=== PATIENT | male | born 1955 | race Caucasian/White ===

== ENCOUNTER → 2017-08-27 | Outpatient (CLI) | payer OTHER ==
--- NOTE | 2017-08-27 17:49 | REP ---
Right shoulder series: Three views. History: Pain in the right shoulder. Decreased range of motion. Findings: Three views of the right shoulder demonstrate an orthopedic anchor in the humeral head. Glenohumeral and acromioclavicular joints are normally aligned. There is minimal hypertrophy of the AC joint. There is a small right first thoracic rib which it is seen articulating with the midportion of the right second rib. This is unchanged from comparison chest x-ray. Periarticular soft tissues are unremarkable. Impression: Orthopedic anchor in the humeral head. Mild AC joint osteoarthritic hypertrophy. 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 Signed by Ceasar Mitchell MD 08/27/2017 05:53 P
== END ==
LOC: M ADAMS 16:10
PROVIDERS: ATTEND Family Medicine
DX: M19.011 Primary osteoarthritis, right shoulder (principal); M25.511 Pain in right shoulder

== ENCOUNTER → 2017-08-27 | Outpatient (REF) | payer OTHER ==
[2017-08-27 20:48] LABS: MEAN CORPUSCULAR HEMOGLOBIN 31.6 pg (27.0-33.0); MEAN CORPUSCULAR HGB CONC 33.6 g/dl (32.0-36.5); MEAN CORPUSCULAR VOLUME 94.3 fl (80.0-96.0); PLATELET COUNT, AUTOMATED 261 10^3/uL (150-450); RED CELL DISTRIBUTION WIDTH 12.8 % (11.5-14.5); WHITE BLOOD COUNT 7.9 10^3/uL (4.0-10.0)
[2017-08-27 20:54] LABS: VITAMIN B12 LEVEL 612 PG/ML (247-911)
[2017-08-27 20:55] LABS: FOLATE 15.4 NG/ML (>5.4)
[2017-08-27 21:06] LABS: ALBUMIN/GLOBULIN RATIO 1.11 (1.00-1.93); ALKALINE PHOSPHATASE 43 U/L (45-117); ALT/SGPT 31 U/L (12-78); ANION GAP 5 MEQ/L (8-16); AST/SGOT 22 U/L (15-37); BILIRUBIN,TOTAL 0.7 MG/DL (0.2-1.0); BLOOD UREA NITROGEN 18 MG/DL (7-18); CALCIUM LEVEL 8.8 MG/DL (8.8-10.2); CARBON DIOXIDE LEVEL 30 MEQ/L (21-32); CHLORIDE LEVEL 104 MEQ/L (98-107); CHOLESTEROL LEVEL 217 MG/DL (<200); CREATININE FOR GFR 0.78 MG/DL (0.70-1.30); GLOMERULAR FILTRATION RATE > 60.0 (>49); GLUCOSE, FASTING 75 MG/DL (80-110); POTASSIUM SERUM 4.2 MEQ/L (3.5-5.1); SODIUM LEVEL 139 MEQ/L (136-145); TOTAL PROTEIN 7.6 GM/DL (6.4-8.2); TRIGLYCERIDES LEVEL 89 MG/DL (<150)
== END ==
LOC: M SFHCADAM 15:56
PROVIDERS: ATTEND Family Medicine
DX: R53.83 Other fatigue (principal); G47.33 Obstructive sleep apnea (adult) (pediatric); E78.2 Mixed hyperlipidemia; Z12.5 Encounter for screening for malignant neoplasm of prostate
CPT/HCPCS: 80053; 80061; 82306; 82607; 82746; 84402; 84403; 84439; 84443; 85027; G0103

== ENCOUNTER → 2019-02-26 | Outpatient (CLI) | payer OTHER ==
--- NOTE | 2019-02-26 11:34 | REP ---
Chest two views HISTORY: Cough Comparison: 10/31/2015 The lungs are clear. The heart is normal in size. The pulmonary vasculature is normal in appearance. The bony structure is intact. IMPRESSION: No acute disease. Electronically Signed by David Phan MD 02/26/2019 11:26 A
== END ==
LOC: M WUC 11:12
PROVIDERS: ATTEND Physician Assistant
DX: R05 Cough (principal)

== ENCOUNTER → 2019-09-09 | Outpatient (REF) | payer OTHER | LOC: M LABDRAW1 14:19 | PROVIDERS: ATTEND Orthopaedic Surgery | DX: M21.42 Flat foot [pes planus] (acquired), left foot (principal) ==

== ENCOUNTER → 2021-06-16 | Outpatient (CLI) | payer OTHER ==
--- NOTE | 2021-06-16 15:58 | REP ---
INDICATION: WOUND, SWELLING LT LEG, R/O DVT AND REFLUX. COMPARISON: None. TECHNIQUE: Multiple ultrasonographic images of the deep venous structures of the left lower extremity were obtained from the inguinal ligament to the ankle. Venous compression techniques, color doppler imaging, and augmentation techniques were also obtained where appropriate. As per the ACR guidelines the anterior tibial vein can not be effectively evaluated. Only compression techniques in the calf on the peroneal and posterior tibial veins was attempted/performed. FINDINGS: There is no abnormal echogenic material seen within any of the visualized deep venous structures that would suggest acute thrombosis. Coaptation is unremarkable throughout. Doppler interrogation shows an expected response to respiratory variability and augmentation in the thigh. Compression techniques in the calf showed no abnormality. The color flow images show what appears to be a normal vascular pattern throughout the thigh. Echogenic material seen throughout the greater saphenous vein consistent with thrombosis of the greater saphenous vein. This is not part of the deep venous system. Deep vein reflux study: Reflux is seen in the common femoral vein. An anterior accessory greater saphenous vein is present. No reflux was identified. There is greater saphenous vein occlusion with abnormal echogenic material seen throughout all portions. Reflux is seen within the proximal, mid, and distal portions of the superficial femoral vein. Reflux is seen in the popliteal vein. Reflux is seen in the lesser saphenous vein of 9.7 seconds duration in the AP dimension of which measures 3.9 mm. IMPRESSION: There is no ultrasonographic evidence of deep venous thrombosis involving any of the visualized deep venous structures of the left lower extremity as described above. There is greater saphenous vein occlusion as described above. Abnormal deep vein reflux study as described above. <Electronically signed by Jermaine Michael > 06/16/21 0114
== END ==
LOC: M RAD 13:46
PROVIDERS: ATTEND Surgery
DX: T81.30XA Disruption of wound, unspecified, initial encounter (principal)

== ENCOUNTER → 2021-07-11 | Outpatient (POV) | payer OTHER ==
[~2021-07-11] VITALS: Ht 182.9 cm; Wt 85.5 kg
[2021-07-11 07:45] VITALS: BP 122/73
--- NOTE | 2021-07-14 09:52 | IRCOV ---
[facility] IR Consult Office Visit IR Consult Office Visit DATE: Jul 11, 2021 REASON FOR CONSULTATION/CHIEF COMPLAINT: Nonhealing postsurgical wounds. 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 The surgical sites have not healed since the surgery. 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 Patient also describes extensive foot surgery in the left lower extremity 2-1/2 hours ago, for heel stabilization. This resulted in significant swelling of the left lower extremity. He was diagnosed with a postoperative left lower extremity DVT and treated with Xarelto. Now patient complains of left lower extremity swelling. He denies intermittent claudication or rest pain. He is on his feet all day. He does describe a throbbing and tingling sensation in the leg. He does wear compression stockings. He is a nonsmoker. He has had prior left lower extremity DVT for which he was treated with Xarelto. He is no longer on Xarelto. He does describe prior left GSV ablation many many years ago. He cannot recall when, where or by whom. Patient denies chest pain, shortness of breath, orthopnea or paroxysmal nocturnal dyspnea. Patient denies change in appetite or weight. ALLERGIES: Please see below. HOME MEDICATIONS: Please see below. PAST MEDICAL HISTORY: Dyslipidemia Arthritis Vitamin D deficiency TAYLOR Left lower leg DVT PAST SURGICAL HISTORY: Bilateral shoulder arthroscopy Right inguinal hernia repair Knee surgery Right medial knee resurfacing Left inguinal hernia repair Left foot surgery 2019 FAMILY HISTORY: Noncontributory. SOCIAL HISTORY: Nonsmoker. Denies alcohol or drugs. REVIEW OF SYSTEMS: Otherwise negative. PHYSICAL EXAMINATION: VITAL SIGNS: Please see below. GENERAL APPEARANCE: Appears well. Comfortable at rest. HEENT: No scleral icterus. RESPIRATORY: Normal breathing at rest. CARDIOVASCULAR: Normal rate. ABDOMEN: Nontender. EXTREMITIES: Left lower extremity: [place] in color. Warm to touch. Edema to the knee. Ulcer above the medial malleolus. Sensation intact. Motor 5 out of 5. Popl iteal pulses 1+ PT nonpalpable. Right lower extremity: Warm, pink in color. Sensation intact. Motor intact. No ulcers. No gangrene. DP/PT 1+ popliteal 1+. NEUROLOGICAL: Alert and oriented. PSYCHIATRIC: Appropriate to circumstance. LABORATORY DATA: None recent. Imaging: I personally reviewed the left lower extremity venous reflux study performed 06/16/2021. The left greater saphenous vein is dilated with greater than 0.5 seconds of reflux. ASSESSMENT/PLAN: 66-year-old male with chronic swelling of the left lower extremity and nonhealing postsurgical wounds associated with greater saphenous vein dilation, venous hypertension and reflux. Deep venous system is patent. I agree patient may benefit from EVLT. We discussed the risks and benefits of the procedure and patient is willing to proceed. We'll schedule the patient for left lower extremity EVLT. I spent 30 minutes reviewing patient's records, imaging and in consultation with the patient. Thank you for this referral. Cc Dr. Rosales Allergies Coded Allergies: MS - No Known Drug Allergy (Verified Allergy, Unknown, 02/03/13) VS, I&O, 24H, Fishbone Vital Signs/I&O Vital Signs Date Time Temp Pulse Resp B/P (MAP) Pulse Ox O2 Delivery O2 Flow Rate FiO2 07/11/21 07:45 97.7 76 16 122/73 (89) 99 Room Air FANNY CHAND MD Jul 14, 2021 09:52
== END ==
LOC: M IRPOV 07:39
PROVIDERS: ATTEND Radiology Diagnostic Radiology
DX: T81.89XA Other complications of procedures, not elsewhere classified, initial encounter (principal); I87.302 Chronic venous hypertension (idiopathic) without complications of left lower extremity; E55.9 Vitamin D deficiency, unspecified; E78.5 Hyperlipidemia, unspecified; G47.33 Obstructive sleep apnea (adult) (pediatric); M12.9 Arthropathy, unspecified; Z86.718 Personal history of other venous thrombosis and embolism

== ENCOUNTER → 2021-08-03 | Outpatient (CLI) | payer OTHER ==
[~2021-08-03] MED LIST: D31000TA2 PO; LIDOCAINE 1% MDV 20ML VIAL As Ordered ONE; LIDOCAINE 2% MDV 20ML VIAL As Ordered ONE; MIDAZOLAM INJ 2MG/2ML VIAL (J2250 PER 1MG) As Ordered ONE; NS 1,000 ML IV SCH; PROMETHAZINE INJ 25 MG/ML VIAL (J2550) As Ordered ONE; VITMTA PO; diphenhydrAMINE 50MG/ML VIAL (J1200) As Ordered ONE; fentaNYL 100 MCG/2 ML INJECTION (J3010) As Ordered ONE
--- NOTE | 2021-08-03 08:07 | IRHP ---
[facility] IR Pre-Procedure H & P General Date of Service: Aug 03, 2021 Procedure: Same Day Surgery Interval History and Physical I have seen the patient and reviewed last H & P performed within 30 days. There is no significant interval change. History of Present Illness Chief Complaint The patient is a 66-year-old male admitted with a reason for visit of Varicose Veins, Non Healing Ulcer. PRE-PROCEDURE DIAGNOSIS: Venous hypertension. Varicose veins. Venous ulcer HEART: Normal rate. LUNGS: Normal breathing at rest. ASA Classification ASA Classification: II-Mild systemic disease Mallampati Score: II NPO: Yes Problems with prior sedation: No Obstructive Sleep Apnea: No Plan moderate sedation Allergies Coded Allergies: No Known Drug Allergies (Verified Allergy, Unknown, 08/03/21) Home Medications Scheduled Cholecalciferol (Vitamin D3) (Vitamin D3), 5,000 UNITS PO QWEEK, (Reported) Multivitamins (Thera M Plus Tablet), 1 TAB PO QAM, (Reported) VS, I&O, 24H, Fishbone Vital Signs/I&O Vital Signs Date Time Temp Pulse Resp B/P (MAP) Pulse Ox O2 Delivery O2 Flow Rate FiO2 08/03/21 07:29 97.9 70 18 100 Room Air FANNY CHAND MD Aug 03, 2021 08:07
[2021-08-03 12:00] VITALS: BP 118/62
--- NOTE | 2021-08-03 15:24 | IRPON ---
IR Postoperative Note Date Of Procedure: Aug 03, 2021 Time Of Procedure: 15:18 IR Postoperative Note IR Endovenous laser treatment for leg varicose vein. IR Ultrasound of the left leg. IR Tumescent anesthesia under ultrasound guidance. IR Moderate sedation. Clinical information: Left lower extremity nonhealing venous ulcer. Greater saphenous vein reflux greater than 0.5 seconds. Physician: Dr. Novoa. Procedure: The patient was advised of the benefits, risks and alternatives of the procedure and informed consent was obtained. The time-out was performed with verification of the patient's name, MRN, site of procedure and type of procedure to be performed. The patient was positioned in the prone position on the table. The site was prepped and draped in the usual sterile fashion. Moderate sedation was performed by the physician including the presence of an independent trained RN who assisted in monitoring the patient's level of consciousness and physiologic status. Following the administration of fentanyl and Versed , the physician spent 90 minutes of continuous face to face time with the patient. Ultrasound of the left lower extremity demonstrates dilated left greater saphenous vein, above and below the knee, with greater than 0.5 seconds reflux. The access site was identified with ultrasound and anesthetized with lidocaine. The left greater saphenous vein was accessed under ultrasound guidance at the calf, using a micro introducer needle. An 018 cope wire was advanced into the vein. Incision at the access site was made using a scalpel. The needle was removed and an access catheter was advanced over the wire under ultrasound guidance to > 2.5 centimeters from the saphenofemoral junction. The wire was removed and the laser fiber was advanced through the catheter under ultrasound guidance and positioned with the tip located greater than 2.5 cm from the saphenous femoral junction. Tumescent anesthesia was then injected under ultrasound guidance along the entire length of the vein to be treated. Repeat ultrasound of the saphenofemoral junction was used to confirm positioning of the tip of the laser back greater than 2.5 cm from junction. The patient was positioned in Trendelenburg. The laser was then activated and under ultrasound guidance used to laser the Left greater saphenous vein back to the access point. Simultaneous manual compression was applied to the treated vein. Treatment: Wattage: 7. Time: 96 seconds. Pullback rate 1 cm every 7 seconds. Total Energy deposited 674 joules. Treatment 50 joules per centimeter of vein. The fiber, catheter and sheath were removed, pressure held and hemostasis achieved. A sterile dressing was applied to the site. Compression dressing was then applied to the leg, from ankle to groin. The patient tolerated the procedure well and was returned to the PRU in stable condition. EBL: < 5 ml. Complications: None. Impression: 1. Ultrasound demonstrates dilated left greater saphenous vein with greater than 0.5 seconds reflux. 2. Successful left greater saphenous vein ablation with laser. 3. Compression dressing applied from ankle to groin. Patient to return in 1 week for follow up ultrasound at which time the compression dressing will be switched to stockings. Thank you this referral. CC FANNY Love MD Aug 03, 2021 15:24
== END ==
LOC: M IRPRO 07:22
PROVIDERS: ATTEND Radiology Diagnostic Radiology
DX: I83.029 Varicose veins of left lower extremity with ulcer of unspecified site (principal); I87.312 Chronic venous hypertension (idiopathic) with ulcer of left lower extremity; L97.829 Non-pressure chronic ulcer of other part of left lower leg with unspecified severity
CPT/HCPCS: 36465; 36478; 76940; 99152; 99153; C1769; J1200; J2250; J3010

== ENCOUNTER → 2021-08-08 | Outpatient (POV) | payer OTHER ==
[~2021-08-08] VITALS: Ht 182.9 cm; Wt 84.0 kg
[~2021-08-08] MED LIST changes: -LIDOCAINE 1% MDV 20ML VIAL As Ordered ONE; -LIDOCAINE 2% MDV 20ML VIAL As Ordered ONE; -MIDAZOLAM INJ 2MG/2ML VIAL (J2250 PER 1MG) As Ordered ONE; -NS 1,000 ML IV SCH; -PROMETHAZINE INJ 25 MG/ML VIAL (J2550) As Ordered ONE; -diphenhydrAMINE 50MG/ML VIAL (J1200) As Ordered ONE; -fentaNYL 100 MCG/2 ML INJECTION (J3010) As Ordered ONE
[2021-08-08 08:40] VITALS: BP 114/74
--- NOTE | 2021-08-10 13:01 | IRPN ---
[facility] IR Progress Note IR Progress Note DATE: Aug 08, 2021 FOLLOW-UP: Patient is status post left lower extremity GSV EVLT ablation. Patient reports the left leg is sore and swollen. Patient reports taking down his Monty wrap as it rolled down and was pinching into the back of his thigh/knee. He replaced these with compression stockings. ON EXAMINATION: Left foot and lower extremity appears swollen. Nontender. Calf soft nontender. Ablation tract is nontender. There is skin breakdown behind the knee, in a linear/transverse orientation, compatible with compression and trauma from Monty wrap. Leg is otherwise warm to touch. Sensation intact. IMPRESSION: Status post left lower extremity EVLT. Patient has suffered skin breakdown from friction and trauma of the compression. Advised patient to no longer use thigh-high compression stocking. May use compression sock to the mid calf. Avoid all pressure, friction or trauma to the area. Patient to elevate extremity to help reduce the swelling. Ibuprofen 600 mg 3 times daily as needed for pain. Patient to follow-up with scheduled ultrasound and follow-up in IR clinic next Saturday. CC Dr. Rosales. Allergies Coded Allergies: No Known Drug Allergies (Verified Allergy, Unknown, 08/03/21) VS,Fishbone, I+O VS, Fishbone, I+O Vital Signs Date Time Temp Pulse Resp B/P (MAP) Pulse Ox O2 Delivery O2 Flow Rate FiO2 08/08/21 08:40 97.6 66 20 114/74 (87) 100 FANNY CHAND MD Aug 10, 2021 13:01
== END ==
LOC: M IRPOV 08:33
PROVIDERS: ATTEND Radiology Diagnostic Radiology
DX: Z48.812 Encounter for surgical aftercare following surgery on the circulatory system (principal); S81.801A Unspecified open wound, right lower leg, initial encounter; X58.XXXA Exposure to other specified factors, initial encounter; Y92.9 Unspecified place or not applicable; Y93.9 Activity, unspecified; Y99.9 Unspecified external cause status

== ENCOUNTER → 2021-08-10 | Outpatient (CLI) | payer OTHER ==
--- NOTE | 2021-08-10 12:00 | REP ---
INDICATION: LT LEG S/P EVLT. COMPARISON: None. TECHNIQUE: Multiple ultrasonographic images of the deep venous structures of the left lower extremity were obtained from the inguinal ligament to the ankle. Venous compression techniques, color doppler imaging, and augmentation techniques were also obtained where appropriate. As per the ACR guidelines the anterior tibial vein can not be effectively evaluated. Only compression techniques in the calf on the peroneal and posterior tibial veins was attempted/performed. FINDINGS: There is no abnormal echogenic material seen within any of the visualized deep venous structures that would suggest acute thrombosis. Coaptation is unremarkable throughout. Doppler interrogation shows an expected response to respiratory variability and augmentation in the thigh. Compression techniques in the calf showed no abnormality. The color flow images show what appears to be a normal vascular pattern throughout the thigh. IMPRESSION: There is no ultrasonographic evidence of deep venous thrombosis involving any of the visualized deep venous structures of the left lower extremity as described above. <Electronically signed by Jermaine Michael > 08/10/21 [id number]
== END ==
LOC: M RAD 11:07
PROVIDERS: ATTEND Radiology Diagnostic Radiology
DX: I82.402 Acute embolism and thrombosis of unspecified deep veins of left lower extremity (principal); L97.908 Non-pressure chronic ulcer of unspecified part of unspecified lower leg with other specified severity

== ENCOUNTER → 2021-08-15 | Outpatient (POV) | payer OTHER ==
[~2021-08-15] VITALS: Ht 182.9 cm; Wt 85.4 kg
[2021-08-15 12:42] VITALS: BP 119/73
--- NOTE | 2021-08-17 13:29 | IRPN ---
[facility] IR Progress Note IR Progress Note DATE: Aug 15, 2021 FOLLOW-UP: Patient is 3 weeks status post left lower extremity EVLT therapy. He denies any pain in the left lower extremity. ON EXAMINATION: Left lower extremity appears less edematous than on the prior visit. There is less swelling of the foot. Calf is soft and nontender. The site behind the knee, from Monty wrap trauma appears to be healing. Imaging: I personally reviewed his 1 week post EVLT follow-up ultrasound. Good treatment response with saphenous vein occlusion. No deep vein thrombosis. IMPRESSION: Doing well status post left lower extremity EVLT therapy. Patient is encouraged to wear compression stockings to the knee and avoid any friction or pressure to the area above the knee. Continue with wound care. No further follow-up scheduled unless initiated by patient and/or referring provider. Allergies Coded Allergies: No Known Drug Allergies (Verified Allergy, Unknown, 08/03/21) VS,Fishbone, I+O VS, Fishbone, I+O Vital Signs Date Time Temp Pulse Resp B/P (MAP) Pulse Ox O2 Delivery O2 Flow Rate FiO2 08/15/21 12:42 97.5 77 20 119/73 (88) 97 Room Air FANNY CHAND MD Aug 17, 2021 13:29
== END ==
LOC: M IRPOV 12:30
PROVIDERS: ATTEND Radiology Diagnostic Radiology
DX: Z48.812 Encounter for surgical aftercare following surgery on the circulatory system (principal)

== ENCOUNTER → 2022-03-20 | Outpatient (POV) | payer OTHER ==
[~2022-03-20] VITALS: Ht 182.9 cm; Wt 81.8 kg
[~2022-03-20] MED LIST changes: -D31000TA2 PO; +VITA100093 PO
[2022-03-20 07:40] VITALS: BP 126/71
== END ==
LOC: M IRPOV 07:31
PROVIDERS: ATTEND Radiology Diagnostic Radiology
DX: R60.0 Localized edema (principal); Z48.812 Encounter for surgical aftercare following surgery on the circulatory system

== ENCOUNTER → 2022-04-10 | Outpatient (CLI) | payer OTHER | LOC: M RAD 10:08 | PROVIDERS: ATTEND Radiology Diagnostic Radiology | DX: I87.312 Chronic venous hypertension (idiopathic) with ulcer of left lower extremity (principal) ==

== ENCOUNTER → 2022-05-01 | Outpatient (POV) | payer OTHER ==
[~2022-05-01] VITALS: Ht 182.9 cm; Wt 80.9 kg
[2022-05-01 10:40] VITALS: BP 128/70
== END ==
LOC: M IRPOV 10:36
PROVIDERS: ATTEND Radiology Diagnostic Radiology
DX: R22.42 Localized swelling, mass and lump, left lower limb (principal); I87.2 Venous insufficiency (chronic) (peripheral)

== ENCOUNTER → 2022-12-11 | Outpatient (REF) | payer OTHER ==
[2022-12-11 11:54] LABS: HEMATOCRIT 45.7 % (42.0-52.0); HEMOGLOBIN 15.1 g/dl (13.5-17.5); MEAN CORPUSCULAR HEMOGLOBIN 31.5 pg (27.0-33.0); MEAN CORPUSCULAR VOLUME 95.4 fl (80.0-96.0); PLATELET COUNT, AUTOMATED 252 10^3/uL (150-450); RED BLOOD COUNT 4.79 10^6/uL (4.30-6.10); WHITE BLOOD COUNT 9.5 10^3/uL (4.0-10.0)
[2022-12-11 12:27] LABS: ALBUMIN 3.7 G/DL (3.2-5.2); ALKALINE PHOSPHATASE 47 U/L (46-116); ALT/SGPT 34 U/L (7.0-40); AST/SGOT 35 U/L (<34); BILIRUBIN,TOTAL 0.7 MG/DL (0.3-1.2); BLOOD UREA NITROGEN 17 MG/DL (9-23); CALCIUM LEVEL 8.8 MG/DL (8.3-10.6); CARBON DIOXIDE LEVEL 31 MMOL/L (20-31); CHLORIDE LEVEL 108 MMOL/L (98-107); CHOLESTEROL LEVEL 155 MG/DL (<200); CREATININE FOR GFR 0.72 MG/DL (0.70-1.30); FREE T4 0.98 NG/DL (0.89-1.76); GLOMERULAR FILTRATION RATE > 60.0 (>49); GLUCOSE, FASTING 86 MG/DL (74-106); HDL CHOLESTEROL 44.2 MG/DL (>40); NON-HDL-C 111 MG/DL; POTASSIUM SERUM 4.3 MMOL/L (3.5-5.1); SODIUM LEVEL 142 MMOL/L (136-145); THYROID STIMULATING HORMONE 3.631 uIU/ML (0.55-4.78); TOTAL PROTEIN 6.7 G/DL (5.7-8.2); TRIGLYCERIDES LEVEL 89 MG/DL (<150)
[2022-12-11 12:28] LABS: TOTAL 25(OH) VITAMIN D 79.8 NG/ML (20.0-100.0)
[2022-12-12 10:09] LABS: TESTOSTERONE FREE (DIRECT) 6.1 pg/mL (6.6-18.1)
== END ==
LOC: M SFHCADAM 07:05
PROVIDERS: ATTEND Family Medicine
DX: R53.83 Other fatigue (principal); G47.33 Obstructive sleep apnea (adult) (pediatric); E78.2 Mixed hyperlipidemia; Z13.1 Encounter for screening for diabetes mellitus; Z12.5 Encounter for screening for malignant neoplasm of prostate; E55.9 Vitamin D deficiency, unspecified
CPT/HCPCS: 80053; 80061; 82306; 83036; 84402; 84403; 84439; 84443; 85027; G0103

== ENCOUNTER 2023-02-28 07:58 | Day surgery (SDC) | payer OTHER ==
[~2023-02-28] VITALS: Ht 182.9 cm; Wt 83.0 kg
[~2023-02-28 07:58] MED LIST changes: +NS 1,000 ML IV ONE; +RESTORE PO
[2023-02-28] MEDS ORDERED: propofoL 200 MG/20 ML VIAL As Ordered ONE (09:38)
[2023-02-28 10:20] VITALS: BP 100/62
== END 2023-02-28 10:29 | disposition home or self-care (01) ==
LOC: M OPP 07:58
PROVIDERS: ATTEND Internal Medicine Gastroenterology
DX: Z12.11 Encounter for screening for malignant neoplasm of colon (principal); Z86.010 Personal history of colon polyps; D12.5 Benign neoplasm of sigmoid colon; K63.5 Polyp of colon; K57.30 Diverticulosis of large intestine without perforation or abscess without bleeding; K64.8 Other hemorrhoids; G47.33 Obstructive sleep apnea (adult) (pediatric); Z99.89 Dependence on other enabling machines and devices

== ENCOUNTER → 2024-01-30 | Outpatient (REF) | payer OTHER ==
[~2024-01-30] MED LIST changes: -NS 1,000 ML IV ONE
[2024-01-30 11:35] LABS: HEMATOCRIT 47.3 % (42.0-52.0); HEMOGLOBIN 15.5 g/dl (13.5-17.5); MEAN CORPUSCULAR HEMOGLOBIN 31.6 pg (27.0-33.0); MEAN CORPUSCULAR HGB CONC 32.8 g/dl (32.0-36.5); MEAN CORPUSCULAR VOLUME 96.3 fl (80.0-96.0); PLATELET COUNT, AUTOMATED 218 10^3/uL (150-450); PSA SCREENING 1.09 NG/ML (< 4.00); RED BLOOD COUNT 4.91 10^6/uL (4.30-6.10); WHITE BLOOD COUNT 5.5 10^3/uL (4.0-10.0)
[2024-01-30 11:39] LABS: FREE T4 0.88 NG/DL (0.89-1.76); THYROID STIMULATING HORMONE 4.056 uIU/ML (0.55-4.78)
[2024-01-30 11:40] LABS: ALBUMIN 3.6 G/DL (3.2-5.2); ALKALINE PHOSPHATASE 54 U/L (46-116); ALT/SGPT 24 U/L (7.0-40); AST/SGOT 21 U/L (<34); BILIRUBIN,TOTAL 0.5 MG/DL (0.3-1.2); BLOOD UREA NITROGEN 14 MG/DL (9-23); CALCIUM LEVEL 8.9 MG/DL (8.3-10.6); CARBON DIOXIDE LEVEL 32 MMOL/L (20-31); CHLORIDE LEVEL 108 MMOL/L (98-107); CHOLESTEROL LEVEL 178 MG/DL (<200); CHOLESTEROL RISK RATIO 3.48 (<5); CREATININE FOR GFR 0.76 MG/DL (0.70-1.30); GLOMERULAR FILTRATION RATE > 60.0 (>49); GLUCOSE, FASTING 90 MG/DL (74-106); HDL CHOLESTEROL 51.1 MG/DL (>40); LDL CHOLESTEROL 114.9 MG/DL (<100); NON-HDL-C 126.9 MG/DL; POTASSIUM SERUM 4.5 MMOL/L (3.5-5.1); SODIUM LEVEL 143 MMOL/L (136-145); TESTOSTERONE 560 NG/DL (241-827); TOTAL PROTEIN 6.7 G/DL (5.7-8.2); TRIGLYCERIDES LEVEL 60 MG/DL (<150)
[2024-01-30 11:55] LABS: HEMOGLOBIN A1c 5.3 % (4.0-6.0)
== END ==
LOC: M SFHCCLAY 07:03
PROVIDERS: ATTEND Family Medicine
DX: E34.9 Endocrine disorder, unspecified (principal); Z12.5 Encounter for screening for malignant neoplasm of prostate; E78.2 Mixed hyperlipidemia; Z13.1 Encounter for screening for diabetes mellitus

== ENCOUNTER → 2024-04-02 | Outpatient (REF) | payer OTHER ==
[2024-04-02 12:47] LABS: FREE T4 1.1 NG/DL (0.89-1.76)
[2024-04-02 12:48] LABS: THYROID STIMULATING HORMONE 2.304 uIU/ML (0.55-4.78)
== END ==
LOC: M SFHCCLAY 07:04
PROVIDERS: ATTEND Family Medicine
DX: E03.8 Other specified hypothyroidism (principal)

== ENCOUNTER → 2024-06-02 | Outpatient (REF) | payer OTHER ==
[2024-06-02 18:55] LABS: C REACTIVE PROTEIN QUANTITATIV < 0.40 MG/DL (<1.0)
[2024-06-02 18:56] LABS: ALBUMIN 3.9 G/DL (3.2-5.2); ALKALINE PHOSPHATASE 51 U/L (46-116); ALT/SGPT 36 U/L (7.0-40); AST/SGOT 24 U/L (<34); BILIRUBIN,TOTAL 0.9 MG/DL (0.3-1.2); BLOOD UREA NITROGEN 16 MG/DL (9-23); CALCIUM LEVEL 9.2 MG/DL (8.3-10.6); CARBON DIOXIDE LEVEL 26 MMOL/L (20-31); CHLORIDE LEVEL 108 MMOL/L (98-107); CREATININE FOR GFR 0.69 MG/DL (0.70-1.30); GLOMERULAR FILTRATION RATE > 60.0 (>49); GLUCOSE, FASTING 81 MG/DL (74-106); POTASSIUM SERUM 4.1 MMOL/L (3.5-5.1); SODIUM LEVEL 140 MMOL/L (136-145); TOTAL PROTEIN 7.3 G/DL (5.7-8.2)
[2024-06-02 18:58] LABS: THYROID STIMULATING HORMONE 1.868 uIU/ML (0.55-4.78)
[2024-06-02 18:59] LABS: FREE T4 1.12 NG/DL (0.89-1.76)
[2024-06-02 19:01] LABS: HEMATOCRIT 45.4 % (42.0-52.0); MEAN CORPUSCULAR HEMOGLOBIN 31.4 pg (27.0-33.0); MEAN CORPUSCULAR VOLUME 95.2 fl (80.0-96.0); PLATELET COUNT, AUTOMATED 286 10^3/uL (150-450); RED BLOOD COUNT 4.77 10^6/uL (4.30-6.10); WHITE BLOOD COUNT 6.6 10^3/uL (4.0-10.0)
== END ==
LOC: M SFHCADAM 13:59
PROVIDERS: ATTEND Family Medicine
DX: E03.8 Other specified hypothyroidism (principal)

== ENCOUNTER → 2024-06-03 | Outpatient (CLI) | payer OTHER | LOC: M RAD 12:47 | PROVIDERS: ATTEND Family Medicine | DX: M79.89 Other specified soft tissue disorders (principal) ==

== ENCOUNTER → 2024-10-08 | Outpatient (CLI) | payer OTHER | LOC: M RAD 09:52 | PROVIDERS: ATTEND Family Medicine | DX: N20.0 Calculus of kidney (principal); K40.91 Unilateral inguinal hernia, without obstruction or gangrene, recurrent ==

== ENCOUNTER → 2024-10-19 | Outpatient (REF) | payer OTHER ==
[2024-10-19 11:11] LABS: APPEARANCE, URINE HAZY (CLEAR); BACTERIA, URINE AUTO NEGATIVE (NEGATIVE); BILIRUBIN, URINE AUTO NEGATIVE (NEGATIVE); BLOOD, URINE BLOOD 1+ (NEGATIVE); COLOR, URINE YELLOW (YELLOW); GLUCOSE, URINE (UA) AUTO NEGATIVE (NEGATIVE); KETONE, URINE AUTO NEGATIVE (NEGATIVE); LEUKOCYTE ESTERASE, URINE AUTO TRACE (NEGATIVE); MUCUS, URINE SMALL (NEGATIVE); NITRITE, URINE AUTO NEGATIVE (NEGATIVE); PROTEIN, URINE AUTO NEGATIVE (NEGATIVE); RBC, URINE AUTO 15 /HPF (0-3); SPECIFIC GRAVITY URINE AUTO 1.012 (1.002-1.035); SQUAMOUS EPITHELIAL CELL UR AU 0 /HPF (0-6); UROBILINOGEN, URINE AUTO 0.2 mg/dL (0.0-2.0); WBC, URINE AUTO 6 /HPF (0-3)
[2024-10-19 11:29] LABS: URIC ACID 5.4 MG/DL (3.7-9.2)
[2024-10-19 11:32] LABS: ALBUMIN 3.4 G/DL (3.2-5.2); BLOOD UREA NITROGEN 16 MG/DL (9-23); CARBON DIOXIDE LEVEL 29 MMOL/L (20-31); CHLORIDE LEVEL 108 MMOL/L (98-107); CREATININE FOR GFR 0.79 MG/DL (0.70-1.30); GLOMERULAR FILTRATION RATE > 60.0 (>49); GLUCOSE, FASTING 95 MG/DL (74-106); PHOSPHORUS LEVEL 2.8 MG/DL (2.4-5.1); POTASSIUM SERUM 4.4 MMOL/L (3.5-5.1); SODIUM LEVEL 141 MMOL/L (136-145)
== END ==
LOC: M SFHCCLAY 07:38
PROVIDERS: ATTEND Family Medicine
DX: N20.0 Calculus of kidney (principal)

== ENCOUNTER → 2024-11-23 | Outpatient (CLI) | payer OTHER ==
[~2024-11-23] MED LIST changes: +CIDA500T2 PO; +LEVO50TA5 PO; +MULT-90 PO
== END ==
LOC: M CLY 07:26
PROVIDERS: ATTEND Physician Assistant
DX: Z01.818 Encounter for other preprocedural examination (principal)

== ENCOUNTER → 2024-11-23 | Outpatient (REF) | payer OTHER ==
[2024-11-23 13:24] LABS: APPEARANCE, URINE HAZY (CLEAR); BACTERIA, URINE AUTO NEGATIVE (NEGATIVE); BILIRUBIN, URINE AUTO NEGATIVE (NEGATIVE); BLOOD, URINE BLOOD NEGATIVE (NEGATIVE); CALCIUM OXALATE CRYSTALS MODERATE; COLOR, URINE YELLOW (YELLOW); GLUCOSE, URINE (UA) AUTO NEGATIVE (NEGATIVE); KETONE, URINE AUTO NEGATIVE (NEGATIVE); LEUKOCYTE ESTERASE, URINE AUTO NEGATIVE (NEGATIVE); MUCUS, URINE SMALL (NEGATIVE); NITRITE, URINE AUTO NEGATIVE (NEGATIVE); PROTEIN, URINE AUTO NEGATIVE (NEGATIVE); RBC, URINE AUTO 12 /HPF (0-3); SPECIFIC GRAVITY URINE AUTO 1.015 (1.002-1.035); SQUAMOUS EPITHELIAL CELL UR AU 1 /HPF (0-6); UROBILINOGEN, URINE AUTO 0.2 mg/dL (0.0-2.0); WBC, URINE AUTO 12 /HPF (0-3)
[2024-11-23 13:44] LABS: HEMATOCRIT 46.3 % (42.0-52.0); HEMOGLOBIN 15.1 g/dl (13.5-17.5); MEAN CORPUSCULAR HEMOGLOBIN 31.1 pg (27.0-33.0); MEAN CORPUSCULAR HGB CONC 32.6 g/dl (32.0-36.5); MEAN CORPUSCULAR VOLUME 95.3 fl (80.0-96.0); PLATELET COUNT, AUTOMATED 235 10^3/uL (150-450); RED BLOOD COUNT 4.86 10^6/uL (4.30-6.10)
[2024-11-23 14:16] LABS: BLOOD UREA NITROGEN 13 MG/DL (9-23); CALCIUM LEVEL 8.8 MG/DL (8.3-10.6); CARBON DIOXIDE LEVEL 29 MMOL/L (20-31); CHLORIDE LEVEL 109 MMOL/L (98-107); CREATININE FOR GFR 0.74 MG/DL (0.70-1.30); GLOMERULAR FILTRATION RATE > 60.0 (>49); GLUCOSE, FASTING 93 MG/DL (74-106); POTASSIUM SERUM 4.9 MMOL/L (3.5-5.1); SODIUM LEVEL 142 MMOL/L (136-145)
== END ==
LOC: M SFHCCLAY 07:06
PROVIDERS: ATTEND Family Medicine
DX: Z01.818 Encounter for other preprocedural examination (principal)

== ENCOUNTER 2024-11-30 06:09 | Day surgery (SDC) | payer OTHER ==
[~2024-11-30] VITALS: Ht 185.4 cm; Wt 90.7 kg
[2024-11-30] MEDS ORDERED: SODIUM CHLORIDE 0.9% 1000 ML IV STA (06:43)
[2024-11-30] MEDS ORDERED: SILD100T PO (06:56)
[2024-11-30] MEDS ORDERED: MAGN400C2 PO (06:56)
[2024-11-30] MEDS ORDERED: LIDOCAINE 2% 100MG/5ML SDV (FOR ANES.) As Ordered ONE (07:01)
[2024-11-30] MEDS ORDERED: propofoL 200 MG/20 ML VIAL As Ordered ONE (07:01)
[2024-11-30] MEDS ORDERED: fentaNYL 100 MCG/2 ML INJECTION As Ordered ONE (07:01)
[2024-11-30] MEDS ORDERED: ACETAMINOPHEN 1000MG/100ML IV BAG As Ordered ONE (07:01)
[2024-11-30] MEDS: ceFAZolin SOD 2 GM in IV 1 EA IV ONE (07:50)
[2024-11-30] MEDS ORDERED: ePHEDrine SULFATE 25 MG/5 ML(5MG/ML) SYRINGE As Ordered ONE (08:06)
[2024-11-30] MEDS ORDERED: ONDANSETRON 4MG 2ML VIAL As Ordered ONE (08:07)
[2024-11-30] MEDS: ISOVUE-300 61% 100ML VIAL As Ordered ONE (09:30)
[2024-11-30] MEDS ORDERED: KETOROLAC 60MG 2ML VIAL As Ordered ONE (09:42)
[2024-11-30] MEDS ORDERED: NS (Normal Saline) 0.9% 1,000 ML IV SCH (10:00)
[2024-11-30] MEDS ORDERED: oxyCODONE 5MG TAB PO PRN (10:00)
[2024-11-30] MEDS ORDERED: HYDROMORPHONE HCL 0.5 MG/ 0.5 ML SYRINGE IV PRN (10:00)
[2024-11-30] MEDS ORDERED: fentaNYL 100 MCG/2 ML INJECTION IV PRN (10:00)
[2024-11-30] MEDS ORDERED: OXYC1TAB23 PO (10:16)
[2024-11-30] MEDS ORDERED: FLOM0.4C39 PO (10:16)
[2024-11-30] MEDS ORDERED: OXYB5TAB14 PO (10:16)
[2024-11-30] MEDS: ONDANSETRON 4MG 2ML VIAL IV PRN (10:42)
[2024-11-30] MEDS: oxyBUTYnin 5 MG TAB PO PRN (10:55)
[2024-11-30] MEDS: diphenhydrAMINE 50MG/ML VIAL IV PRN (11:31)
[2024-11-30] MEDS: METOCLOPRAMIDE INJ 10MG/2ML VIAL IV ONE (11:31)
[2024-11-30 13:10] VITALS: BP 138/76; TEMP 99; O2SAT 99
== END 2024-11-30 13:15 | disposition home or self-care (01) ==
LOC: M SDC 06:09
PROVIDERS: ATTEND Urology
DX: N20.0 Calculus of kidney (principal); G47.30 Sleep apnea, unspecified; E03.9 Hypothyroidism, unspecified; Z79.890 Hormone replacement therapy; Z79.899 Other long term (current) drug therapy
CPT/HCPCS: 52356; 76000; 82365; C1769; C1894; C2617; J0131; J0690; J1100; J1200; J1885; J2405; J2765; J3010; Q9967

== ENCOUNTER → 2024-12-10 | Outpatient (CLI) | payer OTHER ==
[~2024-12-10] MED LIST changes: +FLOM0.4C39 PO; +MAGN400C2 PO; +OXYB5TAB14 PO; +OXYC1TAB23 PO; +SILD100T PO
== END ==
LOC: M CLY 07:36
PROVIDERS: ATTEND Urology
DX: N20.0 Calculus of kidney (principal)

== ENCOUNTER → 2025-07-01 | Outpatient (CLI) | payer OTHER ==
[~2025-07-01] MED LIST changes: -FLOM0.4C39 PO; +TAMS-18 PO
== END ==
LOC: M CLY 14:42
PROVIDERS: ATTEND Urology
DX: N20.0 Calculus of kidney (principal)

== ENCOUNTER → 2025-08-09 | Outpatient (REF) | payer OTHER ==
[2025-08-09 13:01] LABS: PLATELET COUNT, AUTOMATED 276 10^3/uL (150-450)
[2025-08-09 13:02] LABS: ALT/SGPT 29 U/L (7.0-40); AST/SGOT 29 U/L (<34); CALCIUM LEVEL 8.6 MG/DL (8.3-10.6); CARBON DIOXIDE LEVEL 29 MMOL/L (20-31); CHLORIDE LEVEL 105 MMOL/L (98-107); CHOLESTEROL LEVEL 203 MG/DL (<200); CHOLESTEROL RISK RATIO 3.40 (<5); CREATININE FOR GFR 0.77 MG/DL (0.70-1.30); FREE T4 1.22 NG/DL (0.89-1.76); GLOMERULAR FILTRATION RATE > 90.0 (>49); LDL CHOLESTEROL 132.0 MG/DL (<100); NON-HDL-C 143.4 MG/DL; POTASSIUM SERUM 4.2 MMOL/L (3.5-5.1); PSA SCREENING 3.63 NG/ML (< 4.00); SODIUM LEVEL 142 MMOL/L (136-145); TRIGLYCERIDES LEVEL 57 MG/DL (<150)
[2025-08-09 13:41] LABS: ESTIMATED AVERAGE GLUCOSE 108.0 MG/DL (60-110)
== END ==
LOC: M SFHCCLAY 07:10
PROVIDERS: ATTEND Family Medicine
DX: G47.33 Obstructive sleep apnea (adult) (pediatric) (principal); E03.8 Other specified hypothyroidism; E78.2 Mixed hyperlipidemia; G25.0 Essential tremor; Z13.1 Encounter for screening for diabetes mellitus; Z12.5 Encounter for screening for malignant neoplasm of prostate
CPT/HCPCS: 80053; 80061; 83036; 84439; 84443; 85027; G0103